=== PATIENT | male | born 1985 | race Two or more races ===

== ENCOUNTER 2023-09-11 08:12 | Outpatient (CLI) | payer OTHER ==
--- NOTE | 2023-09-11 08:50 | Sleep Patient Instructions ---
Sleep Center Visit Summary - Patient Visit Information Reason for Visit: 6-week follow-up with pressure change - Patient Instructions Additional Instructions: You were here for follow up of CPAP therapy. You will be continued on CPAP therapy with pressure at 9-12 cmH2O. A prescription for a portable CPAP was given to you to get to your PCM. You should follow up with sleep care in 6 months. You may contact us sooner for any questions or concerns. - Clinic Information Contact: formerly [facility] [address] [place] [address] [email or web address] T: [phone]
--- NOTE | 2023-09-11 08:54 | SLEEP CARE CONSULTATION ---
Information from patient questionnaire entered by Savi Red. I have reviewed and concur with the information entered by Savi Red. This document represents the service I personally performed and the decisions made by , Gisselle Rojas ARNP. History of Present Illness Service Date and Time: 09/11/2023 0812 Previous diagnosis: Moderate, Severe, Obstructive Sleep Apnea-Hypopnea Syndrome AHI: 26 (with RDI 38 in 2019) Reason for follow up: other (6 WEEK F/U AND PRESSURE CHANGE) Equipment type: CPAP (RESMED AIRSENSE 10 AUTO SET) Equipment obtained from: Other ([email or web address]) Mask style: Nasal pillows ([place]) Backup mask available: Yes Last cushion change: 2 days ago Year and Where: 2019 [facility] HPI additional information: ZOHREH IQBAL was diagnosed to have moderately severe, AHI 26 with RDI 38, obstructive sleep apnea-hypopnea syndrome and returned today for CPAP therapy six week pressure change follow-up. CPAP Compliance Data - Data Reviewed with Patient Average duration of nightly device use: 7 HRS 3 MINS Compliance rate %: 93 (07/27/23-09/08/23; 42/44 days used) Current pressure setting (cmH2O): 9-12 Average residual AHI: 1.1 Central apnea: 0.8 Obstructive apnea: 0.1 Hypopnea: 0.1 Average large leak: 0 L/min Subjective Missed days of use due to: reports: other (forgot to put on on late night) Patient concerns: reports: mask discomfort (occasionally nose soreness). denies: aerophagia, air blowing in eyes, mask leak noise, condensation in mask/hose, nasal congestion, epistaxis Observed to snore while using device: No Current pressure setting perceived as: comfortable On therapy, patient: reports: sleeping better, awakening more refreshed, being more awake and alert during the day, more rested overall. denies: drowsiness while driving Initial Hershey Sleepiness Scale score: 9 (07/29/2020) Current Hershey Sleepiness Scale score: 6 Allergies and Home Medications Known drug allergies: No Drug allergies reviewed: Yes Home medication list reviewed: Yes (no changes) Allergy and home medication list: Allergies No Known Drug Allergies Allergy (Verified 09/09/23 12:43) Review of Systems Review of systems same as previous: Yes (no changes) Physical Exam Vital signs obtained and entered by: GISSELLE WU Blood Pressure: 142/79 Cuff size: regular Heart Rate: 56 O2 Saturation: 95 Height: 5 ft 10 in Weight: 224 lb 12.8 oz Body Mass Index: 32.2 BMI Classification: Obese Impression and Plan 1. Obstructive Sleep Apnea-Hypopnea Syndrome, moderatly severe, with good treatment compliance and good apnea control. On CPAP therapy, the patient has better sleep quality and is more rested overall. He states that since the pressure was changed he has been able to use the CPAP more often and is more comfortable. He feels comfortable breathing in the mask and is sleeping it on all night. He is wanting to get a travel CPAP and knows he needs to go through his PCM. I will write out the prescription for the CPAP and he will get this to his PCM to be authorized and filled. I will have him come back in 6 months so that we can touch base before he moves out of the area. He states in a [place]. Patient's apnea severity and rationale for treatment to reduce apnea, improve sleep quality and reduce cardiovascular and cerebrovascular events was reviewed. I also reviewed the b enefit of consistent device use of CPAP for hypertension, depression and anxiety. 2. Obesity, unspecified. Currently patients BMI is 32.2. Obesity increases the risk of apnea, CPAP pressure requirements and overall health risks especially cardiovascular and diabetes. Thus patient is advised to lose weight. * Continue auto CPAP pressure at 9-12 cmH2O * Portable CPAP * Notify me if snoring with mask or feeling that the pressure is too much or too little * Attempt to lose weight * Call this office if any problems using CPAP * Return for follow up in 6 months, or sooner if concerns arise Counseling Topics: Spare mask, Weight loss health impact Prescriptions: Other (travel CPAP) Follow up with Sleep Care in: 6 months Visit Type: In Office Time Spent with Patient (minutes): 24 Provider Statement: I spent 100% of the Face to Face Visit with the patient with greater than 50% spent counseling the patient and coordination of care.
[2023-09-11 08:57] VITALS: BP 142/79; O2SAT 95
== END 2023-09-11 08:13 | disposition home or self-care (01) ==
LOC: SC 08:12
PROVIDERS: ATTEND Nurse Practitioner Family
DX: G47.33 Obstructive sleep apnea (adult) (pediatric) (principal); E66.9 Obesity, unspecified; Z68.32 Body mass index [BMI] 32.0-32.9, adult
CPT/HCPCS: 99212; 99213

== ENCOUNTER 2023-11-12 06:59 | Outpatient (CLI) | payer OTHER ==
--- NOTE | 2023-11-12 11:40 | MRI Report ---
PROCEDURE: Knee LT WO INDICATIONS: L KNEE PAIN TECHNIQUE: Noncontrast sagittal PD fast spin echo and T2 fast spin echo with fat saturation, sagittal 3-D gradie nt sequence with fat saturation; coronal T1 spin echo and PD fast spin echo with fat saturation, and axial PD fast spin echo with fat saturation through the knee. COMPARISON: None. FINDINGS: Image quality: Excellent. Menisci: The medial and lateral menisci demonstrate normal morphology and internal signal. The meni scal root ligaments appear intact. Cruciate ligaments: The anterior and posterior cruciate ligaments are intact. Medial structures: The medial collateral ligament appears mildly thickened. Visualized portions of t he pes anserinus tendons appear normal. No abnormal bursal fluid. Lateral structures: The lateral collateral ligament, long and short heads of the biceps femoris tend on appear intact. The popliteus tendon appears normal. Iliotibial band appears normal. Anterior structures: The quadriceps and patellar tendons appear intact. Patellar alignment is ekaterina l. No femoral trochlear dysplasia or ventral trochlear prominence. No edema in the infrapatellar fa t pad. Bones and cartilage: No bone marrow contusions or fractures. Low-grade chondromalacia in medial femo ral tibial compartment is seen. Articulating cartilages in lateral femoral tibial compartment and pat ellofemoral compartment is normal in thickness. Joint space: There is trace knee joint fluid. No Sheikh's cyst. Normal appearing synovial plicae ar e incidentally noted. IMPRESSION: 1. The cruciate ligaments are intact. 2. No evidence of focal meniscal tear. 3. Low-grade MCL sprain. 4. Low-grade chondromalacia in medial femoral tibial compartment. No marrow edema. No fracture or dis location. Trace joint effusion, no loose bodies. Reviewed by: Reddy Summers MD on 11/12/2023 11:38 AM PDT Approved by: Reddy Summers MD on 11/12/2023 11:38 AM PDT Station ID: [id number]
== END 2023-11-12 07:00 | disposition home or self-care (01) ==
LOC: DI 06:59
PROVIDERS: ATTEND Family Medicine
DX: S83.412A Sprain of medial collateral ligament of left knee, initial encounter (principal); M94.262 Chondromalacia, left knee; M25.462 Effusion, left knee